=== PATIENT | female | born 1995 | race American Indian/Alaskan Native ===

== ENCOUNTER 2018-02-02 11:07 | Emergency (ER) | payer OTHER ==
--- NOTE | 2018-02-02 11:39 | EDM.PDOC ---
ED HPI GENERAL MEDICAL PROBLEM - General Chief Complaint: ENT Problem Stated Complaint: wasp sting Time Seen by Provider: 02/02/18 11:20 Source of Information: Reports: Patient, Family History Limitations: Reports: No Limitations - History of Present Illness INITIAL COMMENTS - FREE TEXT/NARRATIVE: Keshia comes into [facility] ED with concerns for a possible insect exposure to the R ear canal. She senses an insect inside the canal, without confirming appearance or debris. Sxs occurred just 20 miniutes ago. She has made no attempt to remove. The L ear is asx. - Related Data Allergies Allergy/AdvReac Type Severity Reaction Status Date / Time amoxicillin trihydrate Allergy Rash Verified 12/25/15 09:47 [From Augmentin] potassium clavulanate Allergy Rash Verified 12/25/15 09:47 [From Augmentin] Home Meds: Home Meds Fluticasone Propionate [Flonase] 1 spray NASBOTH DAILY 12/24/15 [History] Ibuprofen [Motrin] 400 mg PO TID PRN 12/24/15 [History] Methylcellulose [Fiber] 625 mg PO DAILY 12/25/15 [History] Past Medical History HEENT History: Reports: Other (See Below) Gastrointestinal History: Reports: GERD, Other (See Below) Other Gastrointestinal History: SMALL AMOUNTS OF BLOOD IN STOOLS AND PROBLEMS WITH CONSTIPATION 3 MONTHS Genitourinary History: Reports: UTI, Recurrent Neurological History: Reports: Headaches, Chronic - Infectious Disease History Infectious Disease History: Reports: None - Past Surgical History HEENT Surgical History: Reports: Oral Surgery ED ROS ENT - Review of Systems Review Of Systems: ROS reveals no pertinent complaints other than HPI. ED EXAM, ENT - Physical Exam Exam: See Below Exam Limited By: No Limitations General Appearance: Alert, WD/WN, No Apparent Distress, Anxious Eye Exam: Bilateral Eye: EOMI, Normal Inspection, PERRL Ears: Normal External Exam, Normal Canal, Hearing Grossly Normal, Normal TMs, TM Obscured by Cerumen (following irrigation, TM is clear, no insect or fb seen) Nose: Normal Inspection Mouth/Throat: Normal Inspection, Normal Gums, Normal Lips, Normal Oropharynx, Normal Teeth Head: Normocephalic Neck: Normal Inspection, Supple Respiratory/Chest: Lungs Clear Cardiovascular: Regular Rate, Rhythm Back: Normal Inspection Extremities: Normal Inspection Neurological: Alert, Oriented, CN II-XII Intact, Normal Cognition, Normal Gait, No Motor/Sensory Deficits Psychiatric: Normal Affect, Anxious Skin: Warm, Dry, Intact, Normal Color, No Rash Lymphatic: No Adenopathy Course - Vital Signs Text/Narrative:: Patient tolerated irrigation well. Departure - Departure Time of Disposition: 11:38 Disposition: Home, Self-Care 01 Condition: Good Clinical Impression: Ceruminosis Qualifiers: Laterality: right Qualified Code(s): H61.21 - Impacted cerumen, right ear - Discharge Information *PRESCRIPTION DRUG MONITORING PROGRAM REVIEWED*: Not Applicable *COPY OF PRESCRIPTION DRUG MONITORING REPORT IN PATIENT ADOLFO: Not Applicable Forms: ED Department Discharge - Problem List & Annotations (1) Ceruminosis SNOMED Code(s): 981068602 Code(s): H61.20 - IMPACTED CERUMEN, UNSPECIFIED EAR Status: Acute Annotation/Comment:: Activity as tolerated. Qualifiers: Laterality: right Qualified Code(s): H61.21 - Impacted cerumen, right ear - Problem List Review Problem List Initiated/Reviewed/Updated: Yes - Assessment/Plan Plan: Follow up with PCP if needed.
[2018-02-02 12:55] VITALS: BP 116/71
== END 2018-02-02 11:46 | disposition home or self-care (01) ==
LOC: FB.ED 11:07
DX: H61.21 Impacted cerumen, right ear (principal); Z88.1 Allergy status to other antibiotic agents; Z79.899 Other long term (current) drug therapy
CPT/HCPCS: 99282